=== PATIENT | male | born 1980 | race Caucasian/White ===

== ENCOUNTER 2017-01-06 05:11 | Day surgery (SDC) | payer OTHER ==
[~2017-01-06] VITALS: Ht 198.1 cm; Wt 102.5 kg
--- NOTE | ~2017-01-06 | HP ---
PATIENT: LIV ZHENG MEDICAL RECORD: [id number] ACCOUNT: [id number] LOCATION:[place] : 82 ADMISSION DATE: 01/06/17 HISTORY AND PHYSICAL EXAMINATION CHIEF COMPLAINT: Pain. HISTORY OF PRESENT ILLNESS: The patient has had purulent bloody discharge and left perianal pain. This is consistent with either a perirectal abscess that is ruptured or an anal fistula. I am planning for anal evaluation under anesthesia, possible fistulotomy, possible drainage of perirectal abscess. Symptoms are of recent onset. Palpation aggravates. Nothing alleviates. The patient has been on antibiotics. ALLERGIES: No known drug allergies. HOME MEDICATIONS: Protonix. PAST MEDICAL AND SURGICAL HISTORY: Corneal graft, hand surgery which included placement of some pin, gastroesophageal reflux. SOCIAL HISTORY: Nonsmoker. REVIEW OF SYSTEMS: Negative for CVA or seizures. Negative for diabetes or thyroid problems. Negative for renal disease or hepatitis. PHYSICAL EXAMINATION: GENERAL: The patient does not appear acutely ill. He does not appear chronically ill. VITAL SIGNS: Reviewed. HEAD: External ears appear normal. EYES: Extraocular movements are intact. NECK: Trachea is midline. CHEST: No intercostal retractions. PULMONARY: Nonlabored, no stridor. ABDOMEN: Nontender. IMPRESSION: Perirectal abscess versus a perianal fistula. PLAN: As described above. The risks, possible complications and alternatives to procedure were explained to the patient. He elects to proceed. TRANSINT:[id number] Voice Confirmation ID: [id number] DOCUMENT ID: [id number] HISTORY AND PHYSICAL [id number] LIV ZHENG ROBERT MD CC: [id number] DICTATION DATE: 01/06/17 1459 PICK UP DRIVER: 01/06/17 1518 [facility] [address] [place] [address]
--- NOTE | ~2017-01-06 | OP ---
PATIENT NAME: LIV ZHENG MEDICAL RECORD: [id number] :82 LOCATION:D.OPS ADMISSION DATE: SURGEON: OMID GREEN MD DATE OF OPERATION: 01/06/2017 PREOPERATIVE DIAGNOSIS: Perirectal abscess. POSTOPERATIVE DIAGNOSIS: Perirectal abscess. PROCEDURE: Incision and drainage of perirectal abscess. SURGEON: Omid Green MD LICENSED SALES ASSISTANT: None. ESTIMATED BLOOD LOSS: Minimal. ANESTHESIA: Minimal. COMPLICATION: None. The risks, possible complications, and alternatives to the procedure were explained to the patient. He elects to proceed. The patient already told me that he was feeling better with the antibiotics he has been on. He has been taking clindamycin. He has also had purulent bloody drainage. ENDOSCOPIC COURSE: The patient was conveyed to the operating room electively on 01/06/2017. General anesthesia was induced by anesthesia staff. The patient was placed in the lithotomy position. The anus and perianal areas were sterilely prepped and draped. I dilated the anus laterally to 2 fingers. U-shaped anal retractors were placed. I saw no fistulous opening. There was no posterior lying anal fissure. There was induration from the 12 o'clock to 4 o'clock. Utilizing the electrocautery, I made a small drainage site at 3 o'clock and then curetted out the abscess cavity with some small curettes. Cultures were obtained. No packing was necessary. No marsupialization was necessary. Gelfoam was packed within the anus and lower rectum. A combination of steroid preparation and Marcaine were used to infiltrate the perianal tissues for postoperative analgesia. A topical anesthetic cream was applied to the external hemorrhoids. The patient was then extubated and conveyed to post-anesthesia care unit where he was in stable condition. He is going to be dismissed home on [place] as well as [place]. I will see him in the office in 2-3 weeks. TRANSINT:[id number] Voice Confirmation ID: [id number] DOCUMENT ID: [id number] OPERATIVE REPORT [id number] LIV ZHENG OMID GREEN MD CC: ALVARO HUTCHISON MD [id number] DICTATION DATE: 01/06/17 1507 PLANT TECHNICIAN/CONTROL ROOM OPERATOR: 01/06/172037 [facility] 01/06/17 [facility] [address] [place] [address]
[~2017-01-06 05:11] MED LIST: CLEOCIN HCL150 MG PO; PROTONIX20 MG PO
[2017-01-06 11:13] VITALS: BP 133/92; Ht 198.1 cm; Wt 102.5 kg
--- NOTE | 2017-01-06 17:05 | NUR ---
DISCHARGED HOME VIA WHEELCHAIR TO PRIVATE VEHICLE WITH SPOUSE
== END 2017-01-06 17:05 | disposition home or self-care (01) ==
LOC: D.OPS 05:11 → D.PAN 12:30 → D.OPS 17:05
DX: K61.1 Rectal abscess (principal); Z01.812 Encounter for preprocedural laboratory examination; K21.9 Gastro-esophageal reflux disease without esophagitis; Z79.899 Other long term (current) drug therapy

== ENCOUNTER 2019-10-14 06:45 | Day surgery (SDC) | payer OTHER ==
[~2019-10-14] VITALS: Ht 195.6 cm; Wt 104.8 kg
[~2019-10-14 06:45] MED LIST changes: +LISINOPRIL10 MG PO; +PEPCID AC20 MG PO; +ZOCOR10 MG PO; +ZYRTEC10 MG PO
[2019-10-14 07:07] LABS: BASOPHILS 0.2 % (0-2); EOSINOPHILS 7.4 % (0-7); HEMATOCRIT 43.7 % (42.0-54.0); HEMOGLOBIN 14.8 g/dL (13.5-17.5); IMMATURE GRANULOCYTES 0.3 % (0-5); LYMPHOCYTES 23.5 % (15-50); MCH 29.4 pg (26.0-34.0); MCHC 33.9 g/dL (31.0-37.0); MCV 86.7 fL (80.0-100.0); MEAN PLATELET VOLUME 10.9 fL (7.4-10.4); MONOCYTES 9.8 % (2-11); NEUTROPHILS 58.8 % (40-80); PLATELET COUNT 163 10x3/uL (130-400); RBC 5.04 10x6/uL (4.20-6.10); WBC 6.6 10x3/uL (4.8-10.8)
[2019-10-14 07:26] LABS: ANION GAP 9.7 mmol/L (8-16); CALCIUM 8.8 mg/dL (8.5-10.1); CARBON DIOXIDE 26.5 mmol/L (21.0-32.0); CREATININE - SERUM 1.3 mg/dL (0.6-1.3); POTASSIUM - SERUM 4.2 mmol/L (3.5-5.1)
[2019-10-14 08:02] VITALS: BP 125/88; Ht 195.6 cm; Wt 104.8 kg
[2019-10-14] MEDS ORDERED: HYDROCODON-ACE1 EA10 PO (10:51)
--- NOTE | 2019-10-14 12:33 | NUR ---
1200-AMBULATED TO RESTROOM WITH SLOW STEADY GAIT. ABLE TO VOID WITHOUT COMPLICATIONS.VSS.PAIN 2/10 TO SURGICAL SITE.DESCRIBES "DULL" DRESSING CDI. NO DISTRESS. NO N/V. IV PATENT AT [facility].
--- NOTE | 2019-10-14 12:35 | NUR ---
1215-REMOVED IV WITH CATH INTACT,DISPOSED INTO SHARPS,COVERED WITH GUAZE,SECURED WITH MEDIPORE TAPE.
--- NOTE | 2019-10-14 12:36 | NUR ---
1232-ESCORTED OUT VIA W/C WITH SPOUSE AWAITING TO DRIVE HOME
--- NOTE | 2019-10-14 12:36 | NUR ---
1230-PT DRESSED.REVIEWED POST OPERATIVE INSTRUCTIONS AND FOLLOW UP APPOINTMENT.VERBALIZED UNDERSTANDING.
--- NOTE | 2019-10-14 13:58 | OP ---
PATIENT NAME: LIV ZHENG MEDICAL RECORD: [id number] :82 LOCATION:D.OPS ADMISSION DATE: SURGEON: OBED FAJARDO MD DATE OF OPERATION: 10/14/2019 PREOPERATIVE DIAGNOSES: 1. Ventral hernia. 2. Hypertension. 3. Hypercholesterolemia. POSTOPERATIVE DIAGNOSES: 1. Ventral hernia. 2. Hypertension. 3. Hypercholesterolemia. PROCEDURE: Ventral hernia repair without mesh. SURGEON: Obed Fajardo MD REPORT OF PROCEDURE: The patient's abdomen was prepped and draped in sterile fashion. A semicircular incision was made on the inferior aspect of the umbilicus. Electrocautery was used to dissect through the subcutaneous tissues. We elevated the umbilical stalk. Just superior to this, there was a small hernia defect which was fat containing. The hernia sac was dissected free down to the fascial edges. The hernia contents were pushed back into the abdominal cavity. The defect was 1.5 cm wide x 0.5 cm long. I freed up the edges and reapproximated the fascial edges with interrupted 0 Prolenes times 4. The umbilicus was then tacked down to the fascia using a single interrupted 3-0 Vicryl. The subcutaneous tissues were reapproximated with interrupted 3-0 Vicryl and the skin was closed with running subcutaneous 5-0 Monocryl. A 10 mL of 0.25% Marcaine with epinephrine was infused into the surrounding tissues and the wound was dressed appropriately. COMPLICATIONS: None. CONDITION: Stable. ANESTHESIA: General endotracheal and local. BLOOD LOSS: Minimal. TRANSINT:[id number] Voice Confirmation ID: [id number] DOCUMENT ID: [id number] OBED FAJARDO MD at 1358 CC: ALVARO HUTCHISON MD [id number] DICTATION DATE: 10/14/19 1055 DIRECTOR WEB: 10/14/19 1225 [facility] 10/14/19 [id number] [place] [address]
== END 2019-10-14 12:32 | disposition home or self-care (01) ==
LOC: D.OPS 06:45 → D.PAN 09:15 → D.OPS 10:15 → D.PAN 10:15 → D.OPS 12:32
PROVIDERS: ATTEND Surgery
DX: K43.9 Ventral hernia without obstruction or gangrene (principal); I10 Essential (primary) hypertension; E78.00 Pure hypercholesterolemia, unspecified